=== PATIENT | female | born 1970 | race Caucasian/White ===

== ENCOUNTER 2017-01-12 17:08 | Emergency (ER) | payer OTHER ==
[2017-01-12] MEDS ORDERED: TORAdol 30 mg Injection IV ONE (20:50)
[2017-01-12 20:59] LABS: BASOPHIL % 0.4 % (0.0-0.4); Eosinophil % 1.6 % (0.00-5.0); Granulocytes % 69.8 % (36.0-66.0); Lymphocytes % 21.6 % (24.0-44.0); Mean Cell Volume 81.9 fl (78-100); Mean Corpuscular Hemoglobin 27.6 pg (26-32); Mean Platelet Volume 11.1 fl (6-9.5); Monocytes % 6.6 % (0.0-12.0); Platelet Count 269 K/mm3 (150-450); Red Blood Count 5.47 M/mm3 (4.1-5.4)
[2017-01-12] MEDS ORDERED: Sodium Chloride 0.9% 1000 ML 1,000 ML ONE (20:59)
[2017-01-12] MEDS ORDERED: TORAdol 30 mg Injection ONE (20:59)
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
[2017-01-12] MEDS ORDERED: Sodium Chloride 0.9% 1000 ML 1,000 ML IV SCH (21:00)
[2017-01-12 21:14] LABS: Bilirubin NEGATIVE (NEGATIVE); Blood 250 Ery/ul (0-5); COMPLETE URINE MICROSCOPIC? YES; Collection Type VOID; Glucose NEGATIVE (NEGATIVE); Leukocyte Esterase NEGATIVE (NEGATIVE)
[2017-01-12 21:15] LABS: ADD URINE CULTURE? YES (NO); Bacteria MODERATE /HPF (NEGATIVE); Epithelial Cells MODERATE /HPF (FEW); Mucus MODERATE /HPF (NEGATIVE)
[2017-01-12 21:22] LABS: ALBUMIN 3.9 g/dL (3.4-5.0); ALKALINE PHOSPHATASE 219 U/L (46-116); BLOOD UREA NITROGEN 6 mg/dL (9-20); CHLORIDE 106 mEq/L (98-107); Carbon Dioxide 24.5 mEq/L (21-32); Glucose 119 MG/DL (70-110); LIPASE 176 U/L (73-393); Potassium 3.8 mEq/L (3.5-5.1); SGOT/AST 18 U/L (15-37); SGPT/ALT 9 U/L (12-78); SODIUM 143 mEq/L (136-145); Total Protein 7.7 gm/dL (6.4-8.2)
[2017-01-12] MEDS ORDERED: ROCEPHIN 1 Gm-D5w 50 ml Bag** 1 G/50 ML IVPB IV STA (21:45)
[2017-01-12] MEDS ORDERED: ROCEPHIN 1 Gm-D5w 50 ml Bag** 1 G/50 ML IVPB IV ONE (21:52)
[2017-01-12] MEDS ORDERED: Hydromorphone 1 mg/ml Ampule IV ONE (22:25)
[2017-01-12] MEDS ORDERED: Phenergan 25 MG INJ IV ONE (22:25)
[2017-01-12] MEDS ORDERED: Phenergan 25 MG INJ ONE (22:27)
[2017-01-12] MEDS ORDERED: Hydromorphone 1 mg/ml Ampule ONE (22:27)
[2017-01-13 02:58] VITALS: BP 126/68; PULSE 86; O2SAT 97
--- NOTE | 2017-01-13 09:08 | XRAY ---
Indication: Left abdomen/flank pain. Nausea, vomiting, and hematuria. Elevated WBC. Multiple contiguous axial images obtained through the abdomen and pelvis without contrast using renal stone protocol. Comparison: None Lung bases demonstrates minimal bibasilar atelectasis/scarring. Heart is not enlarged. No renal calculus or evidence for obstructive uropathy in either system. Noncontrasted stomach and small bowel loops appear nonobstructed. Descending duodenum demonstrates mild circumferential wall thickening with minimal stranding probably duodenitis. No free fluid/air. There is dense radiopacity throughout the colon and appendix presumed from recent barium exam versus ingested medication. Normal appendix. Previous cholecystectomy. Remaining liver, pancreas, spleen, adrenal glands, kidneys, ureters, bladder, and uterus appear unremarkable for noncontrast exam. Minimal aortoiliac calcifications without AAA. Osseous structures intact. Impression: 1. Negative for renal calculus or evidence for obstructive uropathy. 2. Descending duodenal wall thickening/stranding favoring duodenitis. Comment: Preliminary interpretation was made by [facility]. Duodenal finding not reported. I gave telephone report to Dr. Hung in the ER at 0910 hrs. on January 13, 2017. CT DI 23.43
--- NOTE | 2017-01-13 09:09 | XRAY ---
Indication: Chest pain. Comparison: None PA/lateral chest demonstrates normal heart and lungs. Bony thorax intact with mild dextroscoliosis.
== END 2017-01-13 02:48 | disposition home or self-care (01) ==
LOC: ED 17:08
DX: R10.9 Unspecified abdominal pain (principal); J02.0 Streptococcal pharyngitis; N39.0 Urinary tract infection, site not specified; R11.2 Nausea with vomiting, unspecified; R19.7 Diarrhea, unspecified; R07.89 Other chest pain; M54.9 Dorsalgia, unspecified
CPT/HCPCS: 36000; 36415; 71020; 74176; 80053; 80307; 81000; 82150; 83690; 84484; 84703; 85025; 86308; 87086; 87430; 93005; 96360; 96361; 96374; 96375; 99284; J0696; J1170; J1885; J2550

== ENCOUNTER 2018-08-19 10:33 | Emergency (ER) | payer MEDICAID, OTHER ==
[2018-08-19] MEDS ORDERED: TORAdol 30 mg Injection IV ONE (11:11)
[2018-08-19] MEDS ORDERED: Zofran 4 MG/2 ML VIAL IV ONE (11:11)
[2018-08-19] MEDS ORDERED: Sodium Chloride 0.9% 1000 ML 1,000 ML IV SCH (11:15)
[2018-08-19] MEDS ORDERED: Sodium Chloride 0.9% 1000 ML 1,000 ML ONE (11:16)
[2018-08-19] MEDS ORDERED: TORAdol 30 mg Injection ONE (11:16)
[2018-08-19] MEDS ORDERED: Zofran 4 MG/2 ML VIAL ONE (11:16)
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
[2018-08-19 11:21] LABS: BASOPHIL % 0.5 % (0.0-0.4); Basophil (Absolute #) 0.05 (0-0.4); Eosinophil % 1.3 % (0.00-5.0); Eosinophil (Absolute #) 0.13 (0-0.5); Granulocyte Absolute (ANC) 6.55 (1.4-6.9); Granulocytes % 65.4 % (36.0-66.0); Hematocrit 45.3 % (35-47); Hemoglobin 15.3 gm/dl (12.0-16.0); Lymphocyte (Absolute #) 2.52 (1.0-4.6); Lymphocytes % 25.2 % (24.0-44.0); Mean Cell Volume 86.8 fl (78-100); Mean Corpuscular Hemoglobin 29.3 pg (26-32); Mean Corpuscular Hgb Concent. 33.8 g/dl (32-36); Mean Platelet Volume 11.5 fl (6-9.5); Monocyte (Absolute #) 0.76 (0.0-1.3); Monocytes % 7.6 % (0.0-12.0); Platelet Count 260 K/mm3 (150-450); Red Blood Count 5.22 M/mm3 (4.1-5.4); Red Cell Distribution Width 12.6 % (11.5-14.0)
[2018-08-19 11:24] LABS: Appearance SLIGHTLY CLOUDY (CLEAR); Bilirubin NEGATIVE (NEGATIVE); Blood NEGATIVE Ery/ul (0-5); Epithelial Cells RARE /HPF (FEW); Glucose NEGATIVE (NEGATIVE); Ketones SMALL (NEGATIVE); Leukocyte Esterase NEGATIVE (NEGATIVE); Mucus SLIGHT /HPF (NEGATIVE); Nitrite NEGATIVE (NEGATIVE); Protein,Urine Dip 30 (Negative); Specific Gravity 1.029 (1.005-1.025); Urobilinogen NEGATIVE mg/dL (0-1); WBC 0-2 /HPF (0-5)
[2018-08-19 11:34] LABS: ALBUMIN 4.6 g/dL (3.5-5.0); ALKALINE PHOSPHATASE 104 U/L (38-126); AMYLASE 67 U/L (30-110); ANION GAP 14.4 MEQ/L (5-15); BLOOD UREA NITROGEN 16 mg/dL (7-17); CHLORIDE 99 mmol/L (98-107); Calcium 10.5 mg/dL (8.4-10.2); Carbon Dioxide 29 mmol/L (22-30); Creatinine 1 0.77 mg/dL (0.52-1.04); Glucose 100 mg/dL (74-106); LIPASE 95 U/L (23-300); Potassium 3.8 mmol/L (3.5-5.1); SGOT/AST 30 U/L (14-36); SGPT/ALT 31 U/L (0-35); SODIUM 139 mmol/L (137-145); Total Protein 7.9 g/dL (6.3-8.2)
--- NOTE | 2018-08-19 12:03 | XRAY ---
Indication: Left flank pain. History kidney stones. Multiple contiguous axial images obtained through the abdomen and pelvis without contrast using renal stone protocol. Comparison: January 12, 2017. Lung bases demonstrates minimal dependent atelectasis. No infiltrate or effusion. Heart is not enlarged. New small hiatal hernia. Again no calculus or evidence for obstructive uropathy in either system. Noncontrasted stomach and bowel loops appear nonobstructed. Normal appendix. Minimal descending colon diverticulosis. New 1.8 cm left ovary cyst. No free fluid/air. Again previous cholecystectomy. Remaining liver, pancreas, spleen, adrenal glands, kidneys, ureters, bladder, and uterus appear unremarkable for noncontrast exam. Minimal aortoiliac calcifications without AAA. Osseous structures intact. No ventral or inguinal hernias. Impression: 1. Again negative renal calculus or evidence for obstructive uropathy. 2. New small hiatal hernia. 3. Incidental 1.8 cm left ovary cyst and descending colonic diverticulosis without diverticulitis. 4. Remaining CT abdomen/pelvis without contrast exam is negative. CT DI 22.86
[2018-08-19 12:29] VITALS: BP 130/86; PULSE 58
[2018-08-19 12:44] VITALS: O2SAT 100
== END 2018-08-19 12:52 | disposition home or self-care (01) ==
LOC: ED 10:33
DX: R10.9 Unspecified abdominal pain (principal); K44.9 Diaphragmatic hernia without obstruction or gangrene; N83.209 Unspecified ovarian cyst, unspecified side
CPT/HCPCS: 36000; 36415; 74176; 80053; 81001; 82150; 83690; 85025; 96360; 96374; 96375; 99284; J1885; J2405